=== PATIENT | male | born 1990 | race African-American/Black ===

== ENCOUNTER 2017-06-08 09:30 | Outpatient (CLI) | payer OTHER ==
--- NOTE | 2017-06-08 11:42 | Magnetic Resonance Report ---
MRI scan of brain: History: Schizophrenia spectrum disorder. Technique: Multiplanar, multisequence images were obtained without contrast injection. Findings: No evidence of restricted diffusion. Ventricles are normal in size and midline in location. No evidence of acute ischemia, hemorrhage or mass. No extra axial fluid collection. Normal brainstem and cerebellum. Impression: No acute intracranial abnormality.
== END 2017-06-08 09:31 | disposition home or self-care (01) ==
LOC: MRI 09:30
PROVIDERS: ATTEND Internal Medicine
DX: F20.89 Other schizophrenia (principal); F41.9 Anxiety disorder, unspecified
CPT/HCPCS: 70551